=== PATIENT | female | born 1945 | race Caucasian/White ===

== ENCOUNTER 2018-05-07 15:21 | Emergency (ER) | payer OTHER ==
[2018-05-07 15:38] VITALS: BP 140/48; TEMP 97.8; BMI 25.0
--- NOTE | 2018-05-07 15:46 | ED.PDOC ---
General ED Provider: Dr. KVNG REDD Chief Complaint: Fall Stated Complaint: Patient had an unwitnessed fall she face planted and sustained a laceation to the chin and has a swollen nose but no nose bleed. No loss of conciousness reported. Time Seen by Physician: 15:30 Information Source: Patient Primary Care Provider[facility] Nursing and Triage Documentation Reviewed and Agree: Yes Does patient meet sepsis criteria?: No System Inflammatory Response Syndrome: Not Applicable Sepsis Protocol: For patient's 13 years and over: Temp is 96.8 and below OR 101 and greater Pulse >90 BPM Resp >20/minute Acutely Altered Mental Status Are patient's symptoms suggestive of a new infection, such as: -Pneumonia -Skin, Soft Tissue -Endocarditis -UTI -Bone, Joint Infection -Implantable Device -Acute Abdominal Infection -Wound Infection -Meningitis -Blood Stream Catheter Infection -Unknown Skin Complaint Exam - Laceration/Head/Facial Complaint/Exam Location of Injury: Chin Mechanism of Injury: Laceration Onset/Duration: 1 hour ago Symptoms Are: Still present Initial Severity: Mild Current Severity: Mild Aggravating: Movement Alleviating: Compression Associated Signs and Symptoms: Denies: Fever, Chills, Erythema, Numbness, Tingling Related History: Denies: Anticoagulant use, Occupational injury Head Picture: 1 - Laceration Differential Diagnoses: Laceration Review of Systems - Review Of Systems Constitutional: Denies: Loss of appetite Respiratory: Denies: Cough Skin: Reports: Other (Chin laceartion) Neurological: Denies: Anxiety, Depressed All Other Systems: Other (limited due to dementia.) Past Medical History - Past Medical History Previously Healthy: No Endocrine: Reports: DM 2, Hypothyroid, Dyslipidemia Cardiovascular: Reports: [place], Hypertension Respiratory: Reports: COPD Hematological: Reports: None Gastrointestinal: Reports: None Genitourinary: Reports: None Neuro/Psych: Reports: Anxiety, Dementia, Other (TBI, TMJ) Musculoskeletal: Reports: None Cancer: Reports: None Last Menstrual Period: N/A - Surgical History General Surgical History: Reports: None - Family History Family History: Reports: None - Social History Smoking Status: Former smoker Hx Substance Use: No Alcohol Screening: None - Immunizations Tetanus Shot up to Date: Yes Physical Exam - Physical Exam Appearance: Well-appearing Eyes: VIPUL, EOMI ENT: Ears normal, Nose normal (except contustion on the bridge of nose ) Neck: Supple Respiratory: Airway patent, Breath sounds clear, Breath sounds equal, Respirations nonlabored Cardiovascular: RRR Musculoskeletal: Normal strength, ROM intact, No edema, No calf tenderness Skin: Warm Neurological: Alert Psychiatric: Affect appropriate, Mood appropriate Procedures - Laceration/Wound Repair chin Wound Description: Linear Wound Length (cm): 1.5 Wound Width: 1 Wound Depth: 0.2 Wound Explored: Clean Wound Irrigated: No Wound Prep: Saline, Hibiclens Wound Repaired With: Dermabond Layer Closure?: No Sterile Dressing Applied?: No Splint Applied?: No Sling Applied?: No Progress: Tolerated well Critical Care Note - Critical Care Note Total Time (mins): 0 Course - Course Vital Signs: Temp Pulse Resp BP Pulse Ox 05/07/18 15:25 97.8 F 76 18 140/48 L 95 Departure - Departure Time of Disposition: 15:45 Disposition: HOME SELF-CARE Discharge Problem: Falls, Contusion of nose, initial encounter Laceration of chin Qualifiers: Encounter type: initial encounter Qualified Code(s): S01.81XA - Laceration without foreign body of other part of head, initial encounter Instructions: Skin Adhesive Care (ED), Nasal Contusion (ED), Facial Laceration (ED) Condition: Stable Pt referred to PMD for follow-up: Yes IPMP verified?: No Additional Instructions: Leave dermabond to peal off on its own. May use Ice to nose for 10 min at at time to reduce swelling give Tylenol as needed for pain Follow up with PCP as needed in 2 day Return if worse Allergies/Adverse Reactions: Allergies No Known Allergies Allergy (Verified 05/07/18 15:38) Home Medications: Ambulatory Orders Acetaminophen [Tylenol] 2 tab PO Q4HR PRN 09/08/13 Calcium Carbonate 1 tab PO DAILY 09/08/13 Carvedilol 3.125 mg PO DAILY 09/08/13 Cholecalciferol (Vitamin D3) [Vitamin D] 50,000 unit PO WEEKLY 09/08/13 Hypromellose [Natural Balance Tears] 1 drop EACHEYE DIRECTED PRN 09/08/13 Lactobacillus Acidophilus [Probiotic] 1 cap PO DAILY 09/08/13 Magnesium Hydroxide [Milk of Magnesia] 30 ml PO DIRECTED PRN 09/08/13 Risperidone [Risperdal] 1 tab PO TID 09/08/13 Dextromethorphan HBr/Quinidine [Nuedexta 20-10 mg Capsule] 1 each PO BEDTIME Docusate Sodium [Dok] 100 mg PO DAILY 09/30/15 Hydrocodone Bit/Acetaminophen [[place] 7.5-325] 1 tab PO BID 09/30/15 Levothyroxine Sodium [Synthroid] 25 mcg PO QDAC 09/30/15 Nortriptyline HCl 50 mg PO BEDTIME 09/30/15 Polyethylene Glycol 3350 [Miralax] 17 gm PO DAILY 09/30/15 Pravastatin Sodium [Pravachol] 20 mg PO BEDTIME 09/30/15 Disposition Discussed With: Patient, Family
== END 2018-05-07 15:58 | disposition home or self-care (01) ==
LOC: ED 15:21
DX: S01.81XA Laceration without foreign body of other part of head, initial encounter (principal); S00.33XA Contusion of nose, initial encounter; W19.XXXA Unspecified fall, initial encounter
CPT/HCPCS: 99283

== ENCOUNTER 2018-05-31 12:53 | Inpatient (IN) ==
[2018-05-31 13:00] VITALS: BMI 23.8
--- NOTE | 2018-05-31 14:12 | CT ---
EXAM: CT chest without contrast HISTORY: Cough COMPARISON: None TECHNIQUE: CT chest performed without intravenous contrast. Coronal and sagittal reformatted images obtained. FINDINGS: Thyroid artery obscured secondary to streak artifact. Heart normal in size. Coronary july cifications. No pericardial effusion. Aorta normal in caliber. Moderate to severe atherosclerosis. Esophagus unremarkable. Evaluation for lymphadenopathy limited without contrast. No lymphadenopat hy identified. Granulomatous calcification. Visualized portion upper abdomen demonstrates no acute abnormality. No acute abnormalities of the bones. Degenerative change in the spine. There is bilate ral lower airway thickening with debris in the bilateral lower lobe airways. Mild to moderate centri lobular emphysema. No airspace consolidation. Trace left pleural effusion. No pneumothorax. Mild b ibasilar atelectasis. IMPRESSION: 1. Bilateral lower airway thickening, suggesting small airways infection/inflammation, with debris i n the bilateral lower airways. Recommend CT chest follow-up in 6 months to ensure resolution/exclude endobronchial lesion. 2. Mild to moderate centrilobular emphysema. 3. Bibasilar atelectasis. Trace left pleural effusion. 4. Atherosclerosis. Coronary calcifications.
--- NOTE | 2018-05-31 14:53 | ED.PDOC ---
General ED Provider: Dr. MEIR FISH Chief Complaint: Cough Stated Complaint: cough Time Seen by Physician: 13:00 Mode of Arrival: Wheelchair Information Source: [facility] Exam Limitations: Dementia [facility] T[facility] Documentation Reviewed and Agree: Yes Does patient meet sepsis criteria?: Yes If yes, has appropriate treatment been initiated?: No System Inflammatory Response Syndrome: Not Applicable Sepsis Protocol: For patient's 13 years and over: Temp is 96.8 and below OR 101 and greater Pulse >90 BPM Resp >20/minute Acutely Altered Mental Status Are patient's symptoms suggestive of a new infection, such as: -Pneumonia -Skin, Soft Tissue -Endocarditis -UTI -Bone, Joint Infection -Implantable Device -Acute Abdominal Infection -Wound Infection -Meningitis -Blood Stream Catheter Infection -Unknown Respiratory Complaint Exam - Respiratory Complaint/Exam Onset/Duration: cough possible aspiration Symptoms Are: Still present, Resolved Timing: Intermittent Initial Severity: Moderate Current Severity: None Location: Nose, Throat, Chest Character: Reports: Non-productive cough Aggravating: Reports: None Alleviating: Reports: Spontaneous resolution Associated Signs and Symptoms: Denies: Rapid breathing, Dyspnea, Fever, Chills, Chest pain, Pleuritic chest pain, Wheezing, Hemoptysis, Dizziness, Calf pain, Calf swelling, Edema, URI, Nasal congestion, Hoarseness, Sinus discomfort, Vomiting, Sore throat, Weight loss, Decreased oral intake, Increased thirst, Increased appetite, Increased urination Related History: Reports: Similar episode History of Healthcare-Acquired Pneumonia: No Related Surgical History: Reports: None Pulmonary Embolism Risk Factors: Bedrest Cardiac Risk Factors: Reports: Elevated lipids, Diabetes, Hypertension Tuberculosis Risk Factors: Reports: None Status Asthmaticus Risk Factors: Reports: None Home Oxygen Use: No Recent Stress Test: No Recent Echo/LV Function: No Current Antibiotic Use: No Current Asthma Medication Use: No Respiratory Distress: None Inadequate Respiratory Effort: No Dysphagia Present: No Stridor Present: No JVD Present: No Retractions: Not Present Diminished Breath Sounds: No Sinus Tenderness: None Differential Diagnoses: Foreign body, Pulmonary Edema, COPD Exacerbation, Pneumonia, Bronchitis, Lower Resp. Infection Non-Traumatic Chest Pain Syncope: EKG Performed Review of Systems - Review Of Systems Constitutional: Reports: No symptoms Eyes: Reports: No symptoms Ears, Nose, Mouth, Throat: Reports: No symptoms Respiratory: Reports: Cough Cardiac: Reports: No symptoms GI: Reports: No symptoms : Reports: No symptoms Musculoskeletal: Reports: No symptoms Skin: Reports: No symptoms Neurological: Reports: No symptoms Endocrine: Reports: No symptoms Hematologic/Lymphatic: Reports: No symptoms All Other Systems: Reviewed and Negative Past Medical History - Past Medical History Previously Healthy: No Endocrine: Reports: DM 2, Hypothyroid, Dyslipidemia Cardiovascular: Reports: [place], Hypertension Respiratory: Reports: COPD Hematological: Reports: None Gastrointestinal: Reports: None Genitourinary: Reports: None Neuro/Psych: Reports: Anxiety, Dementia, Other (TBI, TMJ) Musculoskeletal: Reports: None Cancer: Reports: None Last Menstrual Period: none - Surgical History General Surgical History: Reports: None - Family History Family History: Reports: None - Social History Smoking Status: Former smoker Hx Substance Use: No Alcohol Screening: None Physical Exam - Physical Exam Appearance: Well-appearing, No pain distress, Well-nourished Eyes: VIPUL, EOMI, Conjunctiva clear ENT: Ears normal, Nose normal, Oropharynx normal Respiratory: Airway patent, Breath sounds clear, Breath sounds equal, Respirations nonlabored Cardiovascular: RRR, Pulses normal, No rub, No murmur GI/: Soft, Nontender, No masses, Bowel sounds normal, No Organomegaly Musculoskeletal: Normal strength, ROM intact, No edema, No calf tenderness Skin: Warm, Dry, Normal color Neurological: Sensation intact, Motor intact, Reflexes intact, Cranial nerves intact, Alert, Oriented Psychiatric: Affect appropriate, Mood appropriate Interpretation - Radiology Interpretation Radiology Interpretation By: Radiologist Radiology Results: No acute changes Critical Care Note - Critical Care Note Total Time (mins): 0 Course - Course Hematology/Chemistry: 05/31/18 13:40 05/31/18 13:40 Orders, Labs, Meds: Lab Review 05/31/18 05/31/18 13:40 13:40 WBC 9.33 RBC 4.01 L Hgb 12.3 Hct 38.2 MCV 95.3 MCH 30.7 MCHC 32.2 RDW Coeff of Jesse 12.5 Plt Count 223 Immature Gran % (Auto) 0.2 Neut % (Auto) 66.8 Lymph % (Auto) 25.1 Harrison % (Auto) 5.8 Eos % (Auto) 1.8 Baso % (Auto) 0.3 Immature Gran # (Auto) 0.0 Neut # (Auto) 6.2 Lymph # (Auto) 2.3 Harrison # (Auto) 0.5 Eos # (Auto) 0.2 Baso # (Auto) 0.0 Sodium 142 Potassium 3.6 Chloride 102 Carbon Dioxide 29 Anion Gap 14.6 BUN 12 Creatinine 0.80 Estimated GFR (MDRD) 71.00 BUN/Creatinine Ratio 15.00 Glucose 147 H Calcium 9.6 Total Bilirubin 0.2 AST 16 ALT 9 L Alkaline Phosphatase 45 L Total Creatine Kinase 184 CK-MB (CK-2) 2.0 CK-MB (CK-2) % 1.86396 Troponin I < 0.0100 Total Protein 6.8 Albumin 3.2 L Globulin 3.6 Albumin/Globulin Ratio 0.89 Orders Category Date Time Status EKG-(ED ONLY) Stat CARDIO 05/31/18 13:23 Completed CBC W/ AUTO DIFF Stat LAB 05/31/18 13:40 Completed COMPREHENSIVE METABOLIC PANEL Stat LAB 05/31/18 13:40 Completed CREATINE KINASE Stat LAB 05/31/18 13:40 Completed TROPONIN I Stat LAB 05/31/18 13:[address] CHEST W/O CONTRAST Stat RADS 05/31/18 13:24 Completed Vital Signs: Temp Pulse Resp BP Pulse Ox 05/31/18 12:53 97.6 F 68 20 107/71 92 L Departure - Departure Time of Disposition: 14:53 Disposition: ADMITTED INPATIENT Discharge Problem: Cough, Weakness Instructions: Weakness (ED) Condition: Good Pt referred to PMD for follow-up: Yes IPMP verified?: No Additional Instructions: Please call your Family Physician as soon as possible to schedule a follow-up appointment. Allergies/Adverse Reactions: Allergies No Known Allergies Allergy (Verified 05/31/18 13:01) Home Medications: Ambulatory Orders Carvedilol 3.125 mg PO DAILY 09/08/13 Cholecalciferol (Vitamin D3) [Vitamin D] 50,000 unit PO WEEKLY 09/08/13 Lactobacillus Acidophilus [Probiotic] 1 cap PO DAILY 09/08/13 Risperidone [Risperdal] 1.5 mg PO TID 09/08/13 Dextromethorphan HBr/Quinidine [Nuedexta 20-10 mg Capsule] 1 each PO BEDTIME Docusate Sodium [Dok] 100 mg PO DAILY 09/30/15 Levothyroxine Sodium [Synthroid] 25 mcg PO QDAC 09/30/15 Pravastatin Sodium [Pravachol] 20 mg PO BEDTIME 09/30/15 Apixaban [Eliquis] 5 mg PO BID 05/31/18 Calcium Carbonate/Vitamin D3 [Os-Shyam 500+D3 Caplet] 1 each PO BID 05/31/18 Cranberry Fruit Concentrate [Cranberry] 450 mg PO BID 05/31/18 Gabapentin 100 mg PO TID 05/31/18 Guaifenesin/Dextromethorphan [Tussin Dm Cough Syrup] 5 ml PO Q6HR PRN 05/31/18 Menthol/Zinc Oxide [Calmoseptine Ointment] 1 applic TP TID 05/31/18 Sennosides/Docusate Sodium [Senokot-S Tablet] 1 each PO DAILY 05/31/18 Trazodone HCl 100 mg PO BEDTIME 05/31/18 Disposition Discussed With: Patient
[2018-05-31] MEDS ORDERED: ROBITUSSIN DM SYRUP PO PRN (14:57)
[2018-05-31] MEDS: NEURONTIN PO SCH ×2 (15:21→22:27)
[2018-05-31] MEDS: SODIUM CHLORIDE 1,000 ML IV SCH (15:23)
[2018-05-31] MEDS ORDERED: DECADRON 4 MG/ML SDV IVP STA (20:14)
[2018-05-31] MEDS ORDERED: ROCEPHIN 1 GM in SODIUM CHLORIDE 50 ML IV SCH (20:30)
[2018-05-31] MEDS ORDERED: QUINIDINE PO SCH (21:00)
[2018-05-31] MEDS ORDERED: [UNRECOGNIZED DRUG - OTHER] PO SCH (21:00)
[2018-05-31] MEDS ORDERED: DEXTROMETHORPHAN HBR PO SCH (21:00)
[2018-05-31] MEDS ORDERED: ROCEPHIN ONE (21:53)
[2018-05-31] MEDS: DUONEB NEB SCH (22:00)
[2018-05-31] MEDS ORDERED: SODIUM CHLORIDE 50 ML IV ONE (22:04)
[2018-05-31] MEDS: PRAVACHOL PO SCH (22:27)
[2018-05-31] MEDS: ELIQUIS PO SCH (22:28)
[2018-06-01] MEDS: SODIUM CHLORIDE 1,000 ML IV SCH ×2 (04:45→20:36)
[2018-06-01] MEDS: SYNTHROID PO SCH (05:39)
[2018-06-01] MEDS: DUONEB NEB SCH ×3 (06:00→22:25)
[2018-06-01] MEDS: NEURONTIN PO SCH ×3 (08:28→20:36)
[2018-06-01] MEDS: CALMOSEPTINE OINTMENT TP SCH ×2 (08:28→20:35)
[2018-06-01] MEDS: FLORASTOR PO SCH (08:28)
[2018-06-01] MEDS: ELIQUIS PO SCH ×2 (08:34→20:38)
[2018-06-01] MEDS: RISPERDAL PO SCH ×6 (08:49→20:39)
[2018-06-01] MEDS ORDERED: COREG PO SCH (09:00)
[2018-06-01] MEDS ORDERED: RISPERDAL PO SCH (09:00)
[2018-06-01] MEDS ORDERED: LACTOBACILLUS ACIDOPHILUS PO SCH (09:00)
--- NOTE | 2018-06-01 09:35 | HP ---
DATE OF SERVICE: 05/31/18 HISTORY OF PRESENT ILLNESS: This is a 72-year-old female being sent from the [facility] as the patient has been coughing, congested and today while here drinking the juice she choked. Saturation dropped to 88. The [facility] nurse called me and the patient was transferred to the emergency room. Saturation in the ER was 92. No fever. White count normal. CMP normal. CT chest showed bibasilar thickening of the bronchial araujo and some debris in the bases of the lungs. The patient was lethargic. At that time the patient was admitted to the hospital for IV fluids, antibiotics and breathing treatment in view of aspiration. REVIEW OF SYSTEMS: CONSTITUTIONAL: No fever, no chills. HEENT: Normal. ENDOCRINE: No weight gain; no weight loss. CVS: Shortness of breath. No chest pain. No PND, no orthopnea. No PND, no orthopnea. RESPIRATORY: Cough and congestion. No hemoptysis. GI: No nausea, no vomiting. No abdominal pain. No melena. : No hematuria. No polyuria. MUSCULOSKELETAL: No joint swelling. PSYCHIATRIC: Lethargic. Not anxious. No depression. No suicidal thoughts. No homicidal thoughts. SKIN: Intact, no open lesions. 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 FAMILY HISTORY: Unknown. MEDICATIONS: (HOME) Coreg Probiotics Respiradol Vitamin D Synthroid Pravachol Nuedexta Senokot Calcium Neurontin Apixaban Cranberry Trazodone ALLERGIES: NKDA PHYSICAL EXAMINATION: V/S: BP 107/71, respiratory rate 20, heart rate 68, temperature 97, saturation 92%. HEENT: Atraumatic, normocephalic. No scleral icterus. Pallor positive. Mucosa dry. NECK: Supple. No JVD, no bruit. No lymphadenopathy. No thyromegaly. HEART: S1, S2 normal. No murmur. No cyanosis or clubbing. No ascites. LUNGS: Decreased breath sounds with basilar crackles. ABDOMEN: Soft, nontender. Bowel sounds are active. No CVA tenderness. No rigidity or guarding. EXTREMITIES: No pedal edema. No cyanosis or clubbing. MUSCULOSKELETAL: Normal joints, no swelling. NEUROLOGIC: The patient responds to verbal stimuli and goes back to sleep. SKIN: Intact; no open lesions. LYMPHATIC: No lymph nodes palpable. LABS: Sodium 140, potassium 3.6, chloride 102, bicarb 29, BUN 12, creatinine 0.80, glucose 147. White count 9.22, hemoglobin 12.3, hematocrit 38.2, platelet count 223. ASSESSMENT: 1. UPPER RESPIRATORY INFECTION 2. ASPIRATION 3. CHANGE IN MENTAL STATUS 4. ATRIAL FIBRILLATION 5. CAD 6. HYPOTHYROIDISM 7. DEPRESSION 8. DEMENTIA WITH BEHAVIORAL CHANGES PLAN: 1. Admit the patient to the regular floor. 2. IV fluids. 3. Duonebs 4. Cough syrup. 5. Continue home medications. 6. 1 cc Decadron. 7. 1 gm Rocephin. TIME SPENT: MORE THAN 75 minutes MTDD
[2018-06-01] MEDS: QUINIDINE PO SCH ×2 (10:37→20:35)
[2018-06-01] MEDS: DEXTROMETHORPHAN HBR PO SCH ×2 (10:37→20:35)
[2018-06-01] MEDS: [UNRECOGNIZED DRUG - OTHER] PO SCH ×2 (10:37→20:35)
[2018-06-01] MEDS: ROCEPHIN 1 GM in SODIUM CHLORIDE 50 ML IV SCH (20:35)
[2018-06-01] MEDS: DESYREL PO SCH (20:36)
[2018-06-01] MEDS: PRAVACHOL PO SCH (20:38)
[2018-06-02] MEDS: DUONEB NEB SCH ×3 (04:51→22:53)
[2018-06-02] MEDS: SYNTHROID PO SCH (06:22)
[2018-06-02] MEDS: RISPERDAL PO SCH ×4 (07:30→21:16)
[2018-06-02] MEDS: [UNRECOGNIZED DRUG - OTHER] PO SCH ×2 (08:13→22:03)
[2018-06-02] MEDS: FLORASTOR PO SCH (08:13)
[2018-06-02] MEDS: NEURONTIN PO SCH ×3 (08:13→21:16)
[2018-06-02] MEDS: DEXTROMETHORPHAN HBR PO SCH ×2 (08:13→22:03)
[2018-06-02] MEDS: QUINIDINE PO SCH ×2 (08:13→22:03)
[2018-06-02] MEDS: COREG PO SCH (08:14)
[2018-06-02] MEDS: CALMOSEPTINE OINTMENT TP SCH ×2 (08:14→21:15)
[2018-06-02] MEDS: ELIQUIS PO SCH ×2 (08:15→21:17)
[2018-06-02] MEDS ORDERED: K-DUR PO STA (08:52)
--- NOTE | 2018-06-02 10:48 | PN ---
DATE OF SERVICE: 06/01/18 SUBJECTIVE: The patient was admitted yesterday for the questionable aspiration pneumonia. Urine is smelling very strong and positive for the leukocyte esterase and nitrates. Started on the Rocephin 1 gram daily. The patient does not communication much. REVIEW OF SYSTEMS: CONSTITUTIONAL: No fever, no chills. HEENT: Normal. ENDOCRINE: No weight gain, no weight loss. CVS: No angina symptoms. No CHF symptoms. No palpitations. No atypical chest pain for CAD. No shortness of breath. No PND, no orthopnea. RESPIRATORY: No cough, no hemoptysis. GI: No nausea, no vomiting. No abdominal pain. : No hematuria. No polyuria. MUSCULOSKELETAL: No joint swelling. PSYCHIATRIC: Not anxious. No depression. No suicidal thoughts. No homicidal thoughts. SKIN: Intact. No rash. PHYSICAL EXAMINATION: V/S: blood pressure 107/66, respiratory rate 18, heart rate 75, temperature 98.3 , saturation 945. HEENT: Normocephalic, atraumatic. Mucosa dry. Pallor positive. No icterus. NECK: Supple. No JVD, no carotid bruit. No lymphadenopathy. LUNGS: Decreased and clear to auscultation. No rales or rhonchi. HEART: S1, S2 normal. No S3. No murmur, gallop or regurgitation. ABDOMEN: Soft, nontender. Bowel sounds active. No rigidity. No rebound or guarding. No CVA tenderness. EXTREMITIES: No cyanosis, clubbing or pedal edema. MUSCULOSKELETAL: No joint swelling. NEUROLOGIC: Awake, alert but not oriented. No focal deficit. LYMPHATIC: No lymph nodes palpable. SKIN: Intact. LABS: WBC 6.52, hgb 13.2, hct 41.2, plt count 227, sodium 140, potassium 4.2, chloride 106, bicarb 26, BUN 8, creatinine 0.74 and glucose 141. Urine positive for the leukocyte esterase and nitrates. CT chest showed the questionable infiltrates and bases for the aspiration. ASSESSMENT: 1. Upper respiratory infection and choking on the food, possible aspiration per CT chest 2. Urinary tract infection 3. History of CVA 4. Left eye blind 5. Hypotension 6. DVT 7. 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 Vitamin D deficiency 9. Alzheimer's Dementia with the behavioral changes 10.Hypothyroidism PLAN: 1. Continue the Rocephin 2. IV fluids 3. Daily I&O's 4. Continue Eliquis 5. DUO NEBS Will follow the patient in daily rounds. TIME SPENT: More than 35 minutes MTDD
[2018-06-02] MEDS: ROCEPHIN 1 GM in SODIUM CHLORIDE 50 ML IV SCH (21:15)
[2018-06-02] MEDS: DESYREL PO SCH (21:16)
[2018-06-02] MEDS: PRAVACHOL PO SCH (21:16)
[2018-06-02] MEDS: SODIUM CHLORIDE 1,000 ML IV SCH (21:51)
[2018-06-03] MEDS: DUONEB NEB SCH (05:08)
[2018-06-03 05:38] VITALS: BP 108/55; TEMP 97.6
[2018-06-03] MEDS: SYNTHROID PO SCH (07:27)
[2018-06-03] MEDS ORDERED: K-DUR PO STA (08:30)
[2018-06-03] MEDS: CALMOSEPTINE OINTMENT TP SCH (08:46)
[2018-06-03] MEDS: RISPERDAL PO SCH (08:47)
[2018-06-03] MEDS: NEURONTIN PO SCH (08:48)
[2018-06-03] MEDS: COREG PO SCH (08:49)
[2018-06-03] MEDS: FLORASTOR PO SCH (08:49)
[2018-06-03] MEDS: ELIQUIS PO SCH (08:50)
[2018-06-03] MEDS ORDERED: INVANZ 1 GM in SODIUM CHLORIDE 50 ML IV SCH (09:00)
[2018-06-03] MEDS: QUINIDINE PO SCH (09:01)
[2018-06-03] MEDS: DEXTROMETHORPHAN HBR PO SCH (09:01)
[2018-06-03] MEDS: [UNRECOGNIZED DRUG - OTHER] PO SCH (09:01)
--- NOTE | 2018-06-03 10:29 | RS.MODBRM ---
Subjective Number of treatment sessions: 1 Date of Evaluation: 06/03/18 Treatment Diagnosis: pneumonia Current Level of Function: This 72 year old female was referred for a modified barium swallow study due to possible aspiration pneumonia. The family and nursing reported the patient coughing frequently when thin liquids were presented. The patient has a hx of CVA and thickened liquids. However, currrently she consumes puree diet texture with thin liquids. She is at risk for aspiration/penetration. Current Diet: Puree diet texture and thin liquids. Current Subjective/complaints:: The family stated she has been "choking" when she drinks thin liquids. They had presented the liquids via spoon. The daughter reported "she coughed so hard I thought she was going to cough a lung up." Nursing reported she eats quickly and takes impulsive bites. She requires verbal cues to take drinks between her bites. The daughter stated, " I don't think therapy intervention is helpful, but I want her to have the safest drinks and food." Medical History Comments:: CVA, Dementia, Pneumonia, UTI. Hx Home Medications: Refer to medications for complete current list. Patient's Goals: Daughter's goal for the patient is to have the safest and least restrictive diet. To reduce coughing with PO intake. Food Presented Thin Liquid: straw (MEDICAL SAFETY DIRECTOR presented the straw midline. Pt demonstrated labial rounding and sucking to take liquids without any difficulty. Pt had delayed swallow response with premature spillage. First trial with penetration pre- swallow and during swallow. Second trial, pt had deep aspiration pre-swallow and during the swallow. ) [place] Liquid: cup (Via straw. MEDICAL SAFETY DIRECTOR presented nectar over three trials with puree bites between drinks. Pt demonstrated improved lingual coordination with nectar liquid consistency. 1x flash penetration with large drink of nectar. No aspiration on 3/3 trials.) Pureed Solid: 1/2 teaspoon (Pt had no overt s/s of aspiration. Delayed swallow response with premature spillage to level of valleculae.), full teaspoon (Pt had premature spillage to level of pyriform sinus.) Oral Phase - Oral Phase Labial Closure: WFL Bolus Formation: Mild Impairment Mastication: Mild Impairment Lingual Movement: Moderate Impairment (Lingual pumping noted frequently when moving bolus) A/P Propulsion: Mild Impairment Premature Vallecular Pooling: Mild Oral Residue: Coating Pharyngeal Phase Pharyngeal Response: Moderate Impairment Base of Tongue: Moderate Impairment (Lingual pumping, poor coordination, difficulty holding bolus prior to swallow initiation.) Epiglottic Movement: Severe Impairment (Minimal movement during swallow.) Laryngeal Excursion: Moderate Impairment Vallecular Residue: Coating Pyriform Residue: Mild (On second trial of puree, mild residue pooling in pyrifrom. Pt cleared residue with consecutive swallow, which was delayed 3 seconds.) Summary and Recommendations - Recommendations PO Diet: Pureed (Present 1/2-3/4 tsp bites to reduce premature spillage. ), [place]-Thick Liquids (Present via midline with straw. Allow pt to take a drink and then take straw out of mouth. Provide verbal cues to swallow to decrease delay in swallow response. Rotate bites and drinks if staff is feeding patient.) Comments:: The patient presents with severe oropharyngeal dysphagia as characterized by lingual coordination, delayed swallow response, decreased sensation, minimal epiglottic movement, and decreased laryngeal excursion. Pt had deep immediate aspiration pre-swallow and during the swallow with thin liquids. 1x typical flash penetration with nectart thick liquids. However, the patient maintains coordination and swallow response to consume nectar thick liquids with minimal risk for aspiration. Further Therapy Indicated?: No Functional Reporting G Codes: Swallowing current CL Discharge CL Severity Impairment Rationale: Pt consumes puree diet texture with nectar thick liquids. Plan Duration of Treatment: One Time Treatment Anticipated Discharge Destination: [facility] Comments: The daughter was educated on the MBSS results and how to thicken liquids to nectar consistency. The daughter wants to use diet/liquid modifications for her mother and not participate in skilled therapeutic interventions. - Treatment Code (1) Oropharyngeal dysphagia Code(s): R13.12 - DYSPHAGIA, OROPHARYNGEAL PHASE
--- NOTE | 2018-06-03 10:47 | PN ---
DATE OF SERVICE: 06/02/18 SUBJECTIVE: The patient was admitted with urinary tract infection and possible questionable aspiration. CT scan did show the debris in the CAT scan. Urine is growing the moderate growth gram negative rods. No fever or chills. The patient's daughter is in the room. All plan and problems been discussed and verbalized understanding. REVIEW OF SYSTEMS: CONSTITUTIONAL: No fever, no chills. HEENT: Normal. ENDOCRINE: No weight gain, no weight loss. CVS: No angina symptoms. No CHF symptoms. No palpitations. No atypical chest pain for CAD. No shortness of breath. No PND, no orthopnea. RESPIRATORY: No cough, no hemoptysis. GI: No nausea, no vomiting. No abdominal pain. : No hematuria. No polyuria. MUSCULOSKELETAL: No joint swelling. PSYCHIATRIC: Not anxious. No depression. No suicidal thoughts. No homicidal thoughts. SKIN: Intact. No rash. PHYSICAL EXAMINATION: V/S: Blood pressure 118/59, respiratory rate 18, heart rate 65, temperature 97.8 and saturation 94%. HEENT: Normocephalic, atraumatic. Mucosa dry. Pallor positive. No icterus. Left eye granula is present. NECK: Supple. No JVD, no carotid bruit. No lymphadenopathy. LUNGS: Decreased and decreased basilar crackles. Clear to auscultation. No rales or rhonchi. HEART: S1, S2 normal. No S3. No murmur, gallop or regurgitation. ABDOMEN: Soft, nontender. Bowel sounds active. No rigidity. No rebound or guarding. No CVA tenderness. EXTREMITIES: No cyanosis, clubbing or pedal edema. MUSCULOSKELETAL: No joint swelling. NEUROLOGIC: Awake, alert. No focal deficit. LYMPHATIC: No lymph nodes palpable. SKIN: Intact. LABS: WBC 8.05, hgb 11.4, hct 34.5, plt count 211, sodium 140, potassium 3.3, chloride 106, bicarb 26, BUN 8, creatinine 0.61 and glucose 94. ASSESSMENT: 1. Urinary tract infection organism gram negative rods 2. Bibasilar infiltrates 3. Question aspiration 4. History of CVA 5. Retinal detachment left eye 6. History of DVT 7. GERD 8. Osteoarthritis 9. Behavioral problems 10.Hypothyroidism PLAN: 1. Aspiration evaluation with Dysphagia evaluation 2. Continue the Rocephin 3. IV fluids 4. Breathing treatments TIME SPENT: More than 35 minutes MTDD
--- NOTE | 2018-06-03 10:54 | DI ---
EXAM: Modified barium swallow HISTORY: Debris noted bilateral lower airways COMPARISON: None FINDINGS: Modified video swallow was performed in conjunction with speech therapist using various co nsistencies of barium. There was aspiration. IMPRESSION: Aspiration. Please see seperate report from the speech therapist for further details.
--- NOTE | 2018-06-06 14:20 | DS ---
DATE OF SERVICE: 06/03/18 (DISCHARGED TO TCU) FINAL DIAGNOSIS: 1. UTI, E. COLI/ESBL POSITIVE 2. DEHYDRATION 3. CHANGE IN MENTAL STATUS 4. HISTORY OF STROKE 5. HYPERTENSION 6. DYSLIPIDEMIA 7. ALZHEIMER'S DEMENTIA WITH BEHAVIORAL CHANGES 8. HYPOTHYROIDISM 9. LEFT EYE BLINDNESS DISCHARGE INSTRUCTIONS: Admit patient to Transitional Care Unit MEDICATIONS AT DISCHARGE: Continue medications, Ertapenem, IV fluids, breathing treatments. NEW PRESCRIPTIONS: None DIET INSTRUCTIONS: Cardiac and Healthy ACTIVITY: As much as tolerated DISEASE SPECIFIC EDUCATION: Dehydration and urinary tract infection discussed, verbalized understanding. HOSPITAL COURSE: This is a 72-year-old female [facility] the [facility] for cough, congestion, questionable aspiration and change in mental status found to have urinary tract infection. White count was normal. CT of chest showed bibasilar infiltrates. Admitted to the hospital, started on IV fluids, antibiotics, Rocephin but urine was positive for E. coli and ESBL positive. As the patient needed long-term IV antibiotics, the patient was admitted to the Transitional. Care Unit today. TIME SPENT: MORE THAN 65 MINUTES MTDVane
== END 2018-06-03 13:36 | disposition swing bed (61) | DRG 206 ==
LOC: ED 12:53 → MEDSURG A 15:00
PROVIDERS: ADMIT Emergency Medicine; ATTEND Emergency Medicine
DX: T17.820A Food in other parts of respiratory tract causing asphyxiation, initial encounter (principal); N39.0 Urinary tract infection, site not specified; F02.81 Dementia in other diseases classified elsewhere, unspecified severity, with behavioral disturbance; F32.9 Major depressive disorder, single episode, unspecified; R41.82 Altered mental status, unspecified; I48.91 Unspecified atrial fibrillation; B96.20 Unspecified Escherichia coli [E. coli] as the cause of diseases classified elsewhere; E86.0 Dehydration; E78.5 Hyperlipidemia, unspecified; E03.9 Hypothyroidism, unspecified; I10 Essential (primary) hypertension; G30.9 Alzheimer's disease, unspecified; H54.7 Unspecified visual loss
CPT/HCPCS: 36415; 80053; 81001; 82550; 82553; 82962; 84484; 85025; 87081; 87086; 87186; 93005; 93010; 94640; 99284

== ENCOUNTER 2018-06-03 13:38 | Inpatient (IN) ==
[2018-06-03] MEDS ORDERED: ROBITUSSIN DM SYRUP PO PRN (14:17)
[2018-06-03] MEDS: RISPERDAL PO SCH ×2 (15:16→21:04)
[2018-06-03] MEDS: NEURONTIN PO SCH ×2 (15:16→21:05)
[2018-06-03] MEDS: CALMOSEPTINE OINTMENT TP SCH ×2 (15:17→21:08)
[2018-06-03] MEDS ORDERED: NON-FORMULARY MEDICATION (Trazodone Hcl [Trazodone Hcl] 100 MG) PO SCH (21:00)
[2018-06-03] MEDS: DESYREL PO SCH (21:05)
[2018-06-03] MEDS: ELIQUIS PO SCH (21:06)
[2018-06-03] MEDS: PRAVACHOL PO SCH (21:07)
[2018-06-03] MEDS: [UNRECOGNIZED DRUG - OTHER] PO SCH (21:08)
[2018-06-03] MEDS: QUINIDINE PO SCH (21:08)
[2018-06-03] MEDS: DEXTROMETHORPHAN HBR PO SCH (21:08)
[2018-06-03] MEDS: DUONEB NEB SCH (21:21)
[2018-06-04] MEDS: DUONEB NEB SCH ×3 (05:00→21:35)
[2018-06-04] MEDS: SYNTHROID PO SCH (06:51)
[2018-06-04] MEDS ORDERED: NON-FORMULARY MEDICATION (Sennosides/Docusate Sodium [Senokot-S Tablet] 1 EACH) PO SCH (09:00)
[2018-06-04] MEDS ORDERED: LACTOBACILLUS ACIDOPHILUS PO SCH (09:00)
[2018-06-04] MEDS: RISPERDAL PO SCH ×3 (09:16→21:10)
[2018-06-04] MEDS: FLORASTOR PO SCH (09:16)
[2018-06-04] MEDS: ELIQUIS PO SCH ×2 (09:16→21:12)
[2018-06-04] MEDS: INVANZ 1 GM in SODIUM CHLORIDE 50 ML IV SCH (09:17)
[2018-06-04] MEDS: CALMOSEPTINE OINTMENT TP SCH ×3 (09:17→21:51)
[2018-06-04] MEDS: DEXTROMETHORPHAN HBR PO SCH ×2 (09:17→21:09)
[2018-06-04] MEDS: COREG PO SCH (09:17)
[2018-06-04] MEDS: [UNRECOGNIZED DRUG - OTHER] PO SCH ×2 (09:17→21:09)
[2018-06-04] MEDS: QUINIDINE PO SCH ×2 (09:17→21:09)
[2018-06-04] MEDS: NEURONTIN PO SCH ×3 (09:17→21:12)
[2018-06-04] MEDS: SODIUM CHLORIDE 1,000 ML IV SCH (09:18)
[2018-06-04] MEDS: COLACE PO SCH (11:29)
[2018-06-04] MEDS: SENNA PO SCH (11:29)
[2018-06-04] MEDS: PROTONIX IV IVP SCH ×2 (16:39→21:50)
--- NOTE | 2018-06-04 17:04 | DI ---
Exam: Single view of the chest. Comparison: 09/08/2013. CT chest performed 05/31/2018. Reason for exam: Short of breath. FINDINGS: No pneumothorax, pleural effusion, or focal consolidation. The cardiac silhouette is not enlarged. Patchy airspace opacities are seen in the lung bases. Old granulomas disease is seen with in the lung parenchyma. Impression: No acute cardiopulmonary process.
[2018-06-04] MEDS: PRAVACHOL PO SCH (21:10)
[2018-06-04] MEDS: DESYREL PO SCH (21:10)
--- NOTE | 2018-06-04 23:03 | DI ---
Exam: Single view of the pelvis with one view of the right hip and one view of the left hip. Comparison: None available. Reason for exam: Fall. FINDINGS: No acute fracture or dislocation. The pelvic ring appears intact. The femoral heads lucius culate with the acetabula bilaterally. Soft tissue calcifications are seen adjacent to both femoral necks presumably degenerative. Impression: No obvious fracture or dislocation is seen in the pelvic ring or either hip. There is moderate degen erative disease with osteophyte formation and facet hypertrophy. Small calcific densities are seen adjacent to both femoral necks presumably degenerative. If clinica l concern exists for avulsion fracture, further evaluation may be performed.
--- NOTE | 2018-06-04 23:03 | DI ---
Exam: Two views of the lumbar spine. Comparison: None available. Reason for exam: Fall. FINDINGS: Grade 1 anterior listhesis of L4 on L5. The vertebral body heights are well maintained. There is relative preservation of the lumbar lordotic curve. Vena cava filter is seen within the abd omen. Atherosclerotic disease is seen within the aorta. Impression: 1. No obvious vertebral body height loss is seen. 2. Intervertebral body disc space height narrowing most notably L4-5 and L5-S1 with anterior listhes is of L4 on L5. 3. Moderate degenerative disease with facet hypertrophy
[2018-06-05] MEDS: DUONEB NEB SCH ×3 (04:55→22:49)
[2018-06-05] MEDS: SYNTHROID PO SCH (05:50)
[2018-06-05] MEDS: [UNRECOGNIZED DRUG - OTHER] PO SCH ×2 (08:56→20:59)
[2018-06-05] MEDS: DEXTROMETHORPHAN HBR PO SCH ×2 (08:56→20:59)
[2018-06-05] MEDS: PROTONIX IV IVP SCH ×2 (08:56→20:45)
[2018-06-05] MEDS: QUINIDINE PO SCH ×2 (08:56→20:59)
[2018-06-05] MEDS: INVANZ 1 GM in SODIUM CHLORIDE 50 ML IV SCH (08:56)
[2018-06-05] MEDS: COREG PO SCH (08:59)
[2018-06-05] MEDS: CALMOSEPTINE OINTMENT TP SCH ×3 (08:59→20:58)
[2018-06-05] MEDS: FLORASTOR PO SCH (09:00)
[2018-06-05] MEDS: SENNA PO SCH (09:00)
[2018-06-05] MEDS: ELIQUIS PO SCH ×2 (09:01→21:02)
[2018-06-05] MEDS: COLACE PO SCH (09:01)
[2018-06-05] MEDS: NEURONTIN PO SCH ×3 (09:01→21:00)
[2018-06-05] MEDS: RISPERDAL PO SCH ×3 (09:02→20:59)
[2018-06-05] MEDS: SODIUM CHLORIDE 1,000 ML IV SCH (14:00)
[2018-06-05] MEDS: PRAVACHOL PO SCH (21:00)
[2018-06-05] MEDS: DESYREL PO SCH (21:01)
[2018-06-06] MEDS: DUONEB NEB SCH ×3 (05:06→22:10)
[2018-06-06] MEDS: SYNTHROID PO SCH (05:34)
[2018-06-06] MEDS: INVANZ 1 GM in SODIUM CHLORIDE 50 ML IV SCH (08:57)
[2018-06-06] MEDS: CALMOSEPTINE OINTMENT TP SCH ×3 (08:57→20:42)
[2018-06-06] MEDS: QUINIDINE PO SCH ×2 (08:57→20:34)
[2018-06-06] MEDS: DEXTROMETHORPHAN HBR PO SCH ×2 (08:57→20:34)
[2018-06-06] MEDS: [UNRECOGNIZED DRUG - OTHER] PO SCH ×2 (08:57→20:34)
[2018-06-06] MEDS: SENNA PO SCH (08:58)
[2018-06-06] MEDS: RISPERDAL PO SCH ×3 (08:58→20:35)
[2018-06-06] MEDS: COLACE PO SCH (08:58)
[2018-06-06] MEDS: COREG PO SCH (08:59)
[2018-06-06] MEDS: NEURONTIN PO SCH ×3 (09:00→20:34)
[2018-06-06] MEDS: FLORASTOR PO SCH (09:00)
[2018-06-06] MEDS: ELIQUIS PO SCH ×2 (09:01→20:36)
[2018-06-06] MEDS: PROTONIX IV IVP SCH ×2 (09:16→22:34)
[2018-06-06] MEDS: SODIUM CHLORIDE 1,000 ML IV SCH ×2 (11:17)
--- NOTE | 2018-06-06 14:42 | HP ---
DATE OF SERVICE: 06/03/18 (ADMIT TO TCU) HISTORY OF PRESENT ILLNESS: This is a 72-year-old female sent from the [facility] for cough, congestion, questionable aspiration and change in mental status found to have urinary tract infection. White count was normal. CT of chest showed bibasilar infiltrates. Admitted to the hospital, started on IV fluids, antibiotics, Rocephin but urine was positive for E. coli and ESBL positive. As the patient needed long-term IV antibiotics, the patient was admitted to the Transitional. Care Unit today. REVIEW OF SYSTEMS: CONSTITUTIONAL: Weakness, tiredness. No fever, no chills. HEENT: Normal. ENDOCRINE: No weight gain; no weight loss. CVS: No chest pain. No PND, no orthopnea. No shortness of breath. No PND, no orthopnea. RESPIRATORY: Cough and congestion. No hemoptysis. GI: No nausea, no vomiting. No abdominal pain. No melena. : No hematuria. No polyuria. MUSCULOSKELETAL: No joint swelling. PSYCHIATRIC: Change in mental status. Not anxious. No depression. No suicidal thoughts. No homicidal thoughts. SKIN: Intact, no open lesions. PAST MEDICAL HISTORY: History of CVA CAD on intermission coordinator anticoagulation Angina Hypercholesterolemia Hypertension DVT Alzheimer's dementia Constipation Osteoarthritis Vitamin D deficiency Hypothyroidism Behavioral changes Atrial fibrillation PAST SURGICAL HISTORY: None PERSONAL HISTORY: The patient lives at the alf, partially dependent upon the ADLs. FAMILY HISTORY: Unknown MEDICATIONS: Continue medications, Ertapenem, IV fluids, breathing treatments. ALLERGIES: NKDA PHYSICAL EXAMINATION: V/S: BP 130/72, respiratory rate 18, heart rate 95, temperature 98.0, saturation 93. HEENT: Atraumatic, normocephalic. Left eye blindness. No scleral icterus. Mucosa dry. NECK: Supple. No JVD, no bruit. No lymphadenopathy. No thyromegaly. HEART: S1, S2 normal. No murmur. No cyanosis or clubbing. No ascites. LUNGS: Decreased breath sounds with basilar crackles. No rales or rhonchi. ABDOMEN: Soft, nontender. Bowel sounds are active. No CVA tenderness. No rigidity or guarding. EXTREMITIES: No pedal edema. No cyanosis or clubbing MUSCULOSKELETAL: Normal joints, no swelling. NEUROLOGIC: The patient is awake, alert, not oriented completely. SKIN: Intact; no open lesions. LYMPHATIC: No lymph nodes palpable. LABS: White count 6.64, hemoglobin 13.3, hematocrit 39.9, platelet count 229. Sodium 140, potassium 3.9, chloride 107, bicarb 25, BUN 8, creatinine 0.68, glucose 95. ASSESSMENT: 1. UTI, ORGANISM E. COLI 2. COUGH AND CONGESTION/URI 3. HISTORY OF CVA 4. HYPERLIPIDEMIA 5. HYPERTENSION 6. CORONARY ARTERY DISEASE 7. NURSING HOME ANTICOAGULATION USED 8. DVT 9. OSTEOARTHRITIS 10. HYPOTHYROIDISM 11. BEHAVIORAL CHANGES 12. ALZHEIMER'S DEMENTIA PLAN: 1. EKG 2. Chest x-ray 3. Duonebs 4. Protonix 40 mg p.o. b.i.d. 5. IV fluids at 40 mL/hr 6. Ertapenem 7. Continue Eliquis TIME SPENT: MORE THAN 35 minutes MTDD
[2018-06-06] MEDS: PRAVACHOL PO SCH (20:34)
[2018-06-06] MEDS: DESYREL PO SCH (20:34)
[2018-06-07] MEDS: DUONEB NEB SCH ×2 (04:50→14:26)
[2018-06-07] MEDS: SYNTHROID PO SCH (05:33)
[2018-06-07 06:02] VITALS: BP 110/60; TEMP 97.1
[2018-06-07] MEDS: CALMOSEPTINE OINTMENT TP SCH ×2 (08:39→14:51)
[2018-06-07] MEDS: PROTONIX IV IVP SCH (08:40)
[2018-06-07] MEDS: INVANZ 1 GM in SODIUM CHLORIDE 50 ML IV SCH (08:40)
[2018-06-07] MEDS: QUINIDINE PO SCH (08:40)
[2018-06-07] MEDS: [UNRECOGNIZED DRUG - OTHER] PO SCH (08:40)
[2018-06-07] MEDS: DEXTROMETHORPHAN HBR PO SCH (08:40)
[2018-06-07] MEDS: NEURONTIN PO SCH ×2 (08:41→14:52)
[2018-06-07] MEDS: SENNA PO SCH (08:41)
[2018-06-07] MEDS: COREG PO SCH (08:42)
[2018-06-07] MEDS: RISPERDAL PO SCH ×2 (08:42→14:52)
[2018-06-07] MEDS: FLORASTOR PO SCH (08:43)
[2018-06-07] MEDS: COLACE PO SCH (08:43)
[2018-06-07] MEDS: ELIQUIS PO SCH (08:43)
[2018-06-07] MEDS ORDERED: DULCOLAX RC STA (12:43)
[2018-06-07] MEDS ORDERED: DULCOLAX RC ONE (12:48)
--- NOTE | 2018-06-07 13:32 | PN ---
DATE OF SERVICE: 06/06/18 SUBJECTIVE: The patient responds to verbal stimuli and goes back to sleep. No fever, no chills. The patient's daughter is in the room and answered all the questions. REVIEW OF SYSTEMS: CONSTITUTIONAL: No fever, no chills. HEENT: Normal. ENDOCRINE: No weight gain, no weight loss. CVS: No angina symptoms. No CHF symptoms. No palpitations. No atypical chest pain for CAD. No shortness of breath. No PND, no orthopnea. RESPIRATORY: No cough, no hemoptysis. GI: No nausea, no vomiting. No abdominal pain. : No hematuria. No polyuria. MUSCULOSKELETAL: No joint swelling. PSYCHIATRIC: Not anxious. No depression. No suicidal thoughts. No homicidal thoughts. SKIN: Intact. No rash. PHYSICAL EXAMINATION: V/S: BP 156/56, respiratory rate 20, heart rate 58, temperature 97.9, saturation 92. HEENT: Normocephalic, atraumatic. Left eye is blind. Mucosa dry. Pallor positive. No icterus. NECK: Supple. No JVD, no carotid bruit. No lymphadenopathy. LUNGS: Decreased breath sounds. Clear to auscultation. No rales or rhonchi. HEART: S1, S2 normal. No S3. No murmur, gallop or regurgitation. ABDOMEN: Soft, nontender. Bowel sounds active. No rigidity. No rebound or guarding. No CVA tenderness. EXTREMITIES: No cyanosis, clubbing or pedal edema. MUSCULOSKELETAL: No joint swelling. NEUROLOGIC: The patient is awake, alert, not oriented. No focal deficit. LYMPHATIC: No lymph nodes palpable. SKIN: Intact. LABS: White count 6.64. Hemoglobin 13.0, hematocrit 69.9, platelet count 229. Sodium 140, potassium 3.9, chloride 107, bicarb 25, BUN 8, creatinine 0.68, glucose 55. ASSESSMENT: 1. UTI ORGANISM E. COLI 2. HISTORY OF CVA 3. LEFT EYE RETINAL DETACHMENT 4. DEMENTIA WITH BEHAVIORAL CHANGES 5. UPPER RESPIRATORY INFECTION PLAN: 1. Continue Ertapenem 2. IV fluids 3. Breathing treatments TIME SPENT: More than 35 minutes MTDD
--- NOTE | 2018-06-07 22:47 | PCM.HOSP ---
- Initial TCU Admit [id number] 45 Minutes High Severity ([id number]): 06/04 - Subsequent TCU Care [id number] 35 Minutes per Day ([id number]): 06/05. 06/06 - TCU Discharge [id number] More Than 30 Minutes ([id number]): 06/07
--- NOTE | 2018-06-07 22:48 | PCM.HOSP ---
- Initial Hospital Care [id number] 70 Minutes Bedside ([id number]): 05/31 - Subsequent Care [id number] 35 Minutes per Day ([id number]): 06/01. 06/02 - Hospital Discharge [id number] More than 30 Minutes ([id number]): 06/03
--- NOTE | 2018-06-08 12:55 | DS ---
DATE OF SERVICE: 06/07/18 FINAL DIAGNOSIS: 1. UTI organism e-coli ESBL positive 2. Aspiration 3. Dementia with change in mental status 4. Upper respiratory infection 5. Atrial fibrillation on Eliquis 6. CAD 7. Hypertension 8. DVT 9. Osteoarthritis 10.Hypothyroidism 11.Vitamin D deficiency 12.Trigeminal neuralgia DISCHARGE INSTRUCTIONS: Discharge the patient to the [facility]. We will get a new U/A today. Repeat CBC and CMP within 5 days. U/A in 5 days. Aleman Catheter care. Discontinue the Almean Catheter after 5th day. Continue Vitals every one week. Oxygen every week. CBC and CMP within one week. Continue home medications. MEDICATIONS AT DISCHARGE: Carvedilol Probiotics Risperdal Vitamin D Synthroid Pravachol Dok Senokot Os-Shyam Gabapentin Eliquis Cranberry Calmoseptine ointment Tussion DM Trazodone Nuedexta NEW PRESCRIPTIONS: Ertapenem for 5 more days. DIET INSTRUCTIONS: Cardiac and pureed diet ACTIVITY: As much as tolerated Can participate in the custodial activities. DISEASE SPECIFIC EDUCATION: Fall precaution Dehydration Antibiotic use Diarrhea HOSPITAL COURSE: Brittany Garcia who was admitted for the questionable aspiration and cough with change in mental status and found to have UTI. CT scan shows aspiration, no pneumonia. The patient was started on the antibiotics and found to have e-coli ESBL. The patient placed on the transitional care unit IV antibiotics continued and breathing treatments were given. The patient's hospital course was uneventful and did not have any complications. CMP and CBC was steady. As the patient been afebrile and did not have any problems the patient being discharged home. TIME SPENT: MORE THAN 65 MINUTES ALEJANDRO
--- NOTE | 2018-06-09 13:30 | PN ---
DATE OF SERVICE: 06/05/18 SUBJECTIVE: Reason for extended stay is for IV antibiotics for ESBL, E. Coli. The patient came in with change in mental status. The patient is more improved but yesterday the patient had a confusion episode. As of today, the patient responds to verbal stimuli and goes back to sleep. REVIEW OF SYSTEMS: CONSTITUTIONAL: No fever, no chills. HEENT: Normal. ENDOCRINE: No weight gain, no weight loss. CVS: No angina symptoms. No CHF symptoms. No palpitations. No atypical chest pain for CAD. No shortness of breath. No PND, no orthopnea. RESPIRATORY: No cough, no hemoptysis. GI: No nausea, no vomiting. No abdominal pain. : No hematuria. No polyuria. MUSCULOSKELETAL: No joint swelling. PSYCHIATRIC: Not anxious. No depression. No suicidal thoughts. No homicidal thoughts. SKIN: Intact. No rash. PHYSICAL EXAMINATION: V/S: BP 134/61, respiratory rate 21, heart rate 78, temperature 98.2, saturation 95. HEENT: Normocephalic, atraumatic. Mucosa dry. Pallor positive. No icterus. NECK: Supple. No JVD, no carotid bruit. No lymphadenopathy. LUNGS: Decreased breath sounds. Clear to auscultation. No rales or rhonchi. HEART: S1, S2 normal. No S3. No murmur, gallop or regurgitation. ABDOMEN: Soft, nontender. Bowel sounds active. No rigidity. No rebound or guarding. No CVA tenderness. EXTREMITIES: No cyanosis, clubbing or pedal edema. MUSCULOSKELETAL: No joint swelling. NEUROLOGIC: Responds to verbal stimuli and goes back to sleep. No focal deficit. LYMPHATIC: No lymph nodes palpable. SKIN: Intact. LABS: White count 6.64, hemoglobin 13.0, hematocrit 39.9, platelet count 229. Sodium 140, potassium 3.9, chloride 107, bicarb 25, BUN 8, creatinine 0.68, glucose 95. ASSESSMENT: 1. E.COLI/ESBL POSITIVE 2. HISTORY OF STROKE 3. LEFT EYE BLINDNESS 4. CONSTIPATION 5. HYPOTHYROIDISM 6. BEHAVIORAL CHANGES PLAN: 1. Continue Ertapenem 2. IV fluids 3. Breathing treatment 4. Upper respiratory infection TIME SPENT: More than 35 minutes MTDD
== END 2018-06-07 15:15 | DRG 206 ==
LOC: MEDSURG A 13:38
PROVIDERS: ADMIT Emergency Medicine; ATTEND Emergency Medicine
DX: T17.820A Food in other parts of respiratory tract causing asphyxiation, initial encounter (principal); N39.0 Urinary tract infection, site not specified; F02.81 Dementia in other diseases classified elsewhere, unspecified severity, with behavioral disturbance; R41.82 Altered mental status, unspecified; B96.20 Unspecified Escherichia coli [E. coli] as the cause of diseases classified elsewhere; E86.0 Dehydration; E78.5 Hyperlipidemia, unspecified; E03.9 Hypothyroidism, unspecified; I48.91 Unspecified atrial fibrillation; I10 Essential (primary) hypertension; G30.9 Alzheimer's disease, unspecified; F32.9 Major depressive disorder, single episode, unspecified; H54.7 Unspecified visual loss
CPT/HCPCS: 36415; 80053; 81001; 82550; 84484; 85025; 87081; 87086; 93005; 93010; 94640; 97802

== ENCOUNTER 2018-06-28 07:13 | Outpatient (CLI) | END 2018-06-28 07:14 | disposition home or self-care (01) | LOC: NONPT 07:13 | PROVIDERS: ATTEND Emergency Medicine | DX: N39.0 Urinary tract infection, site not specified (principal) | CPT/HCPCS: 81001; 87086 ==

== ENCOUNTER 2018-07-26 09:00 | Outpatient (CLI) | END 2018-07-26 09:01 | disposition home or self-care (01) | LOC: NONPT 09:00 | PROVIDERS: ATTEND General Practice | DX: N39.0 Urinary tract infection, site not specified (principal) | CPT/HCPCS: 81001; 87086 ==

== ENCOUNTER 2018-07-28 08:55 | Outpatient (CLI) | END 2018-07-28 08:56 | disposition home or self-care (01) | LOC: NONPT 08:55 | PROVIDERS: ATTEND Internal Medicine | DX: N39.0 Urinary tract infection, site not specified (principal) | CPT/HCPCS: 81001; 87086 ==

== ENCOUNTER 2019-03-28 07:32 | Outpatient (CLI) ==
[2018-10-05 18:43] VITALS: BMI 24.1
== END 2019-03-28 07:33 | disposition home or self-care (01) ==
LOC: NONPT 07:32
PROVIDERS: ATTEND Internal Medicine
DX: R82.90 Unspecified abnormal findings in urine (principal); R35.0 Frequency of micturition
CPT/HCPCS: 81001; 87086; 87186